=== PATIENT | male | born 1985 | race Two or more races ===

== ENCOUNTER 2019-05-10 13:33 | Emergency (ER) | payer OTHER ==
[~2019-05-10] VITALS: Ht 167.6 cm; Wt 68.0 kg
[2019-05-10] MEDS ORDERED: DICLOFENAC SODI75 MG PO (16:27)
[2019-05-10] MEDS ORDERED: MEDROLPACK PO (16:27)
== END 2019-05-10 16:48 | disposition home or self-care (01) ==
LOC: ER 13:33
DX: M54.5 Low back pain (principal)

== ENCOUNTER → 2019-05-15 | Outpatient (CLI) | payer OTHER ==
[~2019-05-15] MED LIST: DICLOFENAC SODI75 MG PO; MEDROLPACK PO
== END | disposition home or self-care (01) ==
LOC: MRI 12:37
DX: M54.5 Low back pain (principal)
CPT/HCPCS: 72148